=== PATIENT | female | born 1995 | race Two or more races ===

== ENCOUNTER 2021-01-27 19:24 | Emergency (ER) | payer OTHER ==
[~2021-01-27] VITALS: Ht 154.9 cm; Wt 56.0 kg
[~2021-01-27 19:24] MED LIST: FERR325T23 PO; IBUP-1222 PO
[2021-01-27 20:04] LABS: MICROSCOPIC AUTO
--- NOTE | 2021-01-27 20:26 | NUR ---
Covering primary for break, waiting for hcg blood. AIDET provided.
--- NOTE | 2021-01-27 20:28 | NUR ---
Ultrasound at bedside now, AIDET provided.
[2021-01-27 21:12] VITALS: BP 119/72
== END 2021-01-27 21:14 | disposition home or self-care (01) ==
LOC: ED 21:06
DX: O20.0 Threatened abortion (principal); Z3A.01 Less than 8 weeks gestation of pregnancy
CPT/HCPCS: 36415; 76801; 81001; 84702; 99284